=== PATIENT | male | born 1965 | race Caucasian/White ===

== ENCOUNTER 2017-04-17 23:25 | Emergency (ER) | payer OTHER ==
[~2017-04-17] VITALS: Ht 185.4 cm; Wt 85.0 kg
[~2017-04-17 23:25] MED LIST: CEPH500C3 PO; DOXY100T17 OR; ZITH250T PO
[2017-04-17 23:28] VITALS: BP 106/68; PULSE 84; RESP 16; TEMP 97.6; O2SAT 100
[2017-04-18] MEDS ORDERED: SODIUM CHLOR 0.9% 1000 ML INJ 1,000 ML IV ONE (00:30)
[2017-04-18] MEDS ORDERED: THIAMINE INJ 100 MG in SODIUM CHLORIDE 0.9% INJ 100 ML IV ONE (00:30)
[2017-04-18 00:38] LABS: AUTOMATED NEUTROPHIL # 5.2 TH/MM3 (1.8-7.7); BASOPHIL % 0.4 % (0.0-2.0); EOSINOPHIL # 0.2 TH/MM3 (0-0.4); EOSINOPHIL % 2.4 % (0.0-4.0); HEMATOCRIT 43.3 % (39.0-51.0); HEMOGLOBIN 15.1 GM/DL (13.0-17.0); LYMPH % 23.5 % (9.0-44.0); LYMPHOCYTE # 1.8 TH/MM3 (1.0-4.8); MEAN CELL VOLUME 100.1 FL (80.0-100.0); MEAN PLATELET VOLUME 7.9 FL (7.0-11.0); MONO % 6.9 % (0.0-8.0); MONOCYTE # 0.5 TH/MM3 (0-0.9); NEUT % 66.8 % (16.0-70.0); PLATELET COUNT 235 TH/MM3 (150-450); RED BLOOD COUNT 4.32 MIL/MM3 (4.50-5.90); RED CELL DISTRIBUTION WIDTH 13.3 % (11.6-17.2); WHITE BLOOD COUNT 7.8 TH/MM3 (4.0-11.0)
[2017-04-18 00:38] LABS: BILIRUBIN, URINE NEG (NEG); BLOOD, URINE NEG (NEG); GLUCOSE,URINE NEG (NEG); KETONE, URINE NEG (NEG); NITRITE,URINE NEG (NEG); PH, URINE 6.5 (5.0-8.5); URINE COLOR COLORLESS (YELLW/STRAW); URINE LEUKOCYTE ESTERASE NEG (NEG)
--- NOTE | 2017-04-18 00:39 | PD ---
HPI Chief Complaint: Chest Pain Time Seen by Provider: 23:29 Travel History International Travel<30 days: No Contact w/Intl Traveler<30days: No Traveled to known affect area: No History of Present Illness HPI The patient is a 52 year old male who presents to the [facility] emergency department with a history of reportedly beginning to feel lightheaded while he was sitting and watching television, and suddenly passing out and falling forward striking his face. The patient has a small laceration to the mid lower lip. The patient has an abrasion to his nasal bridge. The patient denies having any other pain. The patient was brought in by ambulance services in full C-spine immobilization on a backboard. The patient reports that he has had chest pain intermittently for the last 5 years. He reports that he did undergo workup for this proximate 5 years ago including a stress test and with continued pain a cardiac catheterization that was reportedly negative. He has not had any cardiac testing since then. On review of systems otherwise, the patient denies having any chest pain currently. He denies having any shortness of breath. He denies having any recent fevers, cough, congestion, neck pain, abdominal pain, vomiting, diarrhea, urinary symptoms, or neurologic symptoms. PENDING SALE TO [facility] Past Medical History Narrative Medical The patient's past medical history is significant for alcohol abuse, history of carpal tunnel syndrome bilateral wrists, gout involving bilateral ankles, tobacco abuse, chronic chest pain for the last 5 years, anxiety disorder. Anxiety: Yes Cardiac Catheterization: Yes Diabetes: No Diminished Hearing: No Hiatal Hernia: Yes Musculoskeletal: Yes (KNEE SCOPES) Past Surgical History Narrative Surgical The patient's past surgical history is significant for bilateral knee surgeries , right hand surgery, hernia repair. Abdominal Surgery: Yes (HERNIA) Joint Replacement: Yes (FINGER AND BL KNEES) Oral Surgery: Yes (ROOT CANAL) Other Surgery: Yes (VASECTOMY) Social History Alcohol Use: Yes (4 DAYS A WEEK10 beers each time) Tobacco Use: Yes (8-10 CIGARETTES/DAY) Substance Use: No Allergies-Medications (Allergen,Severity, Reaction): Coded Allergies: No Known Allergies (Verified Adverse Reaction, Unknown, 04/17/17) Reported Meds & Prescriptions Reported Meds & Active Scripts Active Zithromax Z-Tanmay (Azithromycin) 250 Mg Tab 250 Mg PO DIRECTED 5 Days 500 MG (2 TABLETS) PO ON DAY 1, THEN 250 MG (1 TABLET) PO ON DAYS 2 TO 5. Keflex (Cephalexin Monohydrate) 500 Mg Cap 500 Mg PO Q6 Doxycycline Hyclate 100 Mg Tab 100 Mg OR BID 7 Days Review of Systems Except as stated in HPI: all other systems reviewed are Neg General / Constitutional: No: Fever Eyes: No: Visual changes HENT: No: Headaches Cardiovascular: Positive: Chest Pain or Discomfort, Syncope, No: Dyspnea on exertion Respiratory: No: Shortness of Breath Gastrointestinal: No: Nausea, Vomiting, Diarrhea, Abdominal Pain Genitourinary: No: Dysuria Musculoskeletal: No: Pain Skin: No Rash Neurologic: Positive: Syncope, Slurred Speech, No: Weakness, Focal Abnormalities, Coordination Problem, Change in Mentation, Sensory Disturbance Psychiatric: Positive: Substance Abuse, No: Depression Endocrine: No: Polydipsia Hematologic/Lymphatic: No: Easy Bruising Physical Exam Narrative General: The patient is a well-developed well-nourished male in no acute distress. The patient is brought in on a back board in full c-spine immobilization by emergency services. Head and Neck exam: Head is normocephalic, without evidence of trauma to his face. The patient has nasal bone tenderness on palpation without any crepitus or step-off. The patient has a 0.5 cm laceration with bleeding controlled to the lower mid lip. No other facial bone tenderness or increased facial bone mobility noted on palpation. Eyes: EOMI, pupils are equal round and reactive to light. Nose: Midline septum with pink mucous membranes Mouth: Dentition unremarkable. Moist mucus membranes. Posterior oropharynx is not erythematous. No tonsillar hypertrophy. Uvula midline. Airway patent. Neck: The patient is immobilized in a cervical collar. No tracheal deviation. The trachea appears midline. Cardiovascular: Regular rate and rhythm without murmurs, gallops, or rubs. No pulse deficit to the extremities. Lungs: Clear to auscultation bilaterally. No wheezes, rhonchi, or rales. No chest wall tenderness to palpation. No erythema or ecchymosis noted. No crepitus , step off, or flail segment noted. Abdomen: Soft, without tenderness to palpation in all 4 quadrants of the abdomen. No guarding, rebound, or rigidity. No erythema or ecchymosis noted. Extremities: No instability or pain noted on pelvic rock. No clubbing, cyanosis , or edema. 2+ pulses in all 4 extremities. No extremity tenderness or deformity noted on palpation or passive/ active range of motion. Back: The patient was log rolled off of the back board. No spinous process tenderness to palpation. No stepoff or crepitus noted. No costovertebral angle tenderness to palpation. No erythema or ecchymosis. Neurologic Exam: Cranial nerves 2-12 were intact on exam. Strength is 5/5 in all 4 extremities. No sensory deficits noted. The patient has slightly slurred speech. Skin Exam: No rash noted. Intact skin that is warm and dry. Data Data Last Documented VS Vital Signs Date Time Temp Pulse Resp B/P (MAP) Pulse Ox O2 Delivery O2 Flow Rate FiO2 04/18/17 01:00 83 16 121/76 (91) 87 16 126/80 (95) 04/18/17 00:45 100 Room Air 04/17/17 23:28 97.6 Orders Orders Electrocardiogram (04/18/17:16) Complete Blood Count With Diff (04/18/17:16) Comprehensive Metabolic Panel (04/18/17:16) Creatine Kinase (Cpk) (04/18/17:16) Ckmb (Isoenzyme) Profile (04/18/17:16) Troponin I (04/18/17:16) B-Type Natriuretic Peptide (04/18/17:16) Prothrombin Time / Inr (Pt) (04/18/17:16) Act Partial Throm Time (Ptt) (04/18/17:16) Lipase (04/18/17:16) Urinalysis - C+S If Indicated (04/18/17:16) Magnesium (Mg) (04/18/17 00:16) Chest, Single Ap (04/18/17:16) Ct Brain W/O Iv Contrast(Rout) (04/18/17:16) Iv Access Insert/Monitor (04/18/17:16) Ecg Monitoring (04/18/17:16) Oximetry (04/18/17:16) Orthostatic Vital Signs (04/18/17:16) Drug Screen, Random Urine (04/18/17:16) Alcohol (Ethanol) (04/18/17 00:16) Ct Cerv Spine W/O Contrast (04/18/17 ) Ct Facial Bones W/O Iv Cont (04/18/17 ) Sodium Chlor 0.9% 1000 Ml Inj (Ns 1000 M (04/18/17 00:30) Thiamine Inj (Thiamine Inj) (04/18/17 00:30) CKMB (04/18/17 00:28) CKMB% (04/18/17 00:28) Ubla-Mms-Xpwusa (Booster) Inj (Boostrix (04/18/17 01:45) Cefazolin 2 Gm Premix (Ancef 2 Gm Premix (04/18/17 01:45) Admit Order (Ed Use Only) (04/18/17 02:10) Labs Laboratory Tests Test 04/18/17 00:20 04/18/17 00:28 Urine Color COLORLESS Urine Turbidity CLEAR Urine pH 6.5 Urine Specific [place] 1.001 Urine Protein NEG mg/dL Urine Glucose (UA) NEG mg/dL Urine Ketones NEG mg/dL Urine Occult Blood NEG Urine Nitrite NEG Urine Bilirubin NEG Urine Urobilinogen LESS THAN 2.0 MG/DL Urine Leukocyte Esterase NEG Urine RBC LESS THAN 1 /hpf Microscopic Urinalysis Comment CULT NOT INDICATED Urine Opiates Screen NEG Urine Barbiturates Screen NEG Urine Amphetamines Screen NEG Urine Benzodiazepines Screen NEG Urine Cocaine Screen NEG Urine Cannabinoids Screen NEG White Blood Count 7.8 TH/MM3 Red Blood Count 4.32 MIL/MM3 Hemoglobin 15.1 GM/DL Hematocrit 43.3 % Mean Corpuscular Volume 100.1 FL Mean Corpuscular Hemoglobin 35.0 PG Mean Corpuscular Hemoglobin Concent 35.0 % Red Cell Distribution Width 13.3 % Platelet Count 235 TH/MM3 Mean Platelet Volume 7.9 FL Neutrophils (%) (Auto) 66.8 % Lymphocytes (%) (Auto) 23.5 % Monocytes (%) (Auto) 6.9 % Eosinophils (%) (Auto) 2.4 % Basophils (%) (Auto) 0.4 % Neutrophils # (Auto) 5.2 TH/MM3 Lymphocytes # (Auto) 1.8 TH/MM3 Monocytes # (Auto) 0.5 TH/MM3 Eosinophils # (Auto) 0.2 TH/MM3 Basophils # (Auto) 0.0 TH/MM3 CBC Comment DIFF FINAL Differential Comment Prothrombin Time 10.7 SEC Prothromb Time International Ratio 1.1 RATIO Activated Partial Thromboplast Time 27.9 SEC Blood Urea Nitrogen 6 MG/DL Creatinine 0.63 MG/DL Random Glucose 95 MG/DL Total Protein 7.6 GM/DL Albumin 3.6 GM/DL Calcium Level 8.6 MG/DL Magnesium Level 2.5 MG/DL Alkaline Phosphatase 107 U/L Aspartate Amino Transf (AST/SGOT) 44 U/L Alanine Aminotransferase (ALT/SGPT) 50 U/L Total Bilirubin 0.5 MG/DL Sodium Level 142 MEQ/L Potassium Level 3.1 MEQ/L Chloride Level 105 MEQ/L Carbon Dioxide Level 30.6 MEQ/L Anion Gap 6 MEQ/L Estimat Glomerular Filtration Rate 134 ML/MIN Total Creatine Kinase 175 U/L Creatine Kinase MB 2.4 NG/ML Troponin I LESS THAN 0.02 NG/ML B-Type Natriuretic Peptide 13 PG/ML Lipase 208 U/L Ethyl Alcohol Level 266 MG/DL [facility] Medical Decision Making Medical Screen Exam Complete: Yes Emergency Medical Condition: Yes Medical Record Reviewed: Yes Interpretation(s) Last Impressions Head CT 04/18/1715 Signed Impressions: Service Date/Time: Tuesday, April 18, 2017 00:50 - CONCLUSION: Negative noncontrast CT brain. Sg Garcia MD Chest X-Ray 04/18/1715 Signed Impressions: Service Date/Time: Tuesday, April 18, 2017 00:29 - CONCLUSION: The lungs are clear. Sg Garcia MD Maxillofacial CT 04/18/17 0000 Signed Impressions: Service Date/Time: Tuesday, April 18, 2017 00:50 - CONCLUSION: 1. 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 No involvement of the infraorbital canal. 2. No other facial bone fractures seen. Sg Garcia MD Cervical Spine CT 04/18/17 0000 Signed Impressions: Service Date/Time: Tuesday, April 18, 2017 00:50 - CONCLUSION: Negative exam. No evidence of compression deformity or spondylolisthesis. Sg Garcia MD Differential Diagnosis Acute coronary syndrome, versus cardiac arrhythmia, versus orthostasis, versus vasovagal syncope, versus alcohol intoxication Narrative Course During the course of the patients emergency department visit, the patients history, examination, and differential diagnosis were reviewed with the patient. The patient was placed on a library monitor with oximetry and frequent blood pressure monitoring. The patient had IV access obtained and blood work sent for analysis. The patient was initially provided an update to his tetanus, Ancef 2 g IV, thiamine 100 mg IV, normal saline 100 mL per hour. The patient was noted be hypokalemic and was given potassium supplementation orally. The patients laboratory studies were reviewed and remarkable for white count of 7.8, hemoglobin 15.1, platelets 235 with a normal differential, CMP is remarkable for a potassium of 3.1, BUNs 6, AST 44, initial set of cardiac enzymes are within normal limits, BNP is 13, lipase 208, PT 10.7, PTT 27.9. Urinalysis is unremarkable. Urine drug screen is negative, alcohol level CCLXVI. Radiology studies were reviewed and remarkable for a chest x-ray that shows no acute abnormality, head CT shows no acute evidence of intracranial hemorrhage or trauma. CT scan of the C-spine shows degenerative changes, no other acute abnormality. CT scan of the facial bones shows an inferior left-sided anterior orbital discontinuity with herniation of fat. No involvement of the infraorbital canal. No other facial bone fractures seen. The patient's arrived at his bedside. The patient became increasingly agitated and was requesting to leave. I explained to the patient that I plan to admit him for syncope and chest pain. Additionally explained that he had what appeared to be an orbital fracture on the left side and would require evaluation by the maxillofacial surgeon. During that discussion the patient continued to be agitated, belligerent, intermittently cursing. The patient was in the process of being admitted to the hospital when the patient decided that he did not want to stay any longer and preferred to leave AGAINST MEDICAL ADVICE. I had a lengthy discussion with him regarding the fact that he has an orbital fracture on the left side and would require evaluation by a maxillofacial surgeon. In spite of this, the patient refuses admission. The patient additionally reports that he is aware that he could have a cardiac problem causing his syncopal events, however again he does not want to stay to have this evaluated. His is at the bedside and did witness the conversation. The patient was noted to be oriented to person, place, time, situation, and current president. AMA: The risks of leaving against medical advice without further evaluation treatment were discussed with the patient. These risks include cardiac dysfunction, cardiac dysrhythmia, possible heart attack, possible stroke, , loss of vision in the left eye. The patient indicated understanding of these risks and appeared to have the capacity to make this decision. Diagnosis Primary Impression: Syncope Qualified Codes: R55 - Syncope and collapse Additional Impressions: Alcohol abuse Fracture of left orbital floor Qualified Codes: S02.32XA - Fracture of orbital floor, left side, initial encounter for closed fracture Referrals: Eric Tovar DDS 2 days Patient Instructions: Chest Pain (ED), Facial Fracture (ED), General Instructions, Syncope (ED) Disposition: 07 AGAINST MEDICAL ADVICE Condition: Monik Sellers MD Apr 18, 2017 00:39
[2017-04-18 00:44] VITALS: O2SAT 100
--- NOTE | 2017-04-18 00:44 | RADRPT ---
EXAM DATE/TIME: 04/18/2017 00:29 [facility] COMPARISON: No previous studies available for comparison. INDICATIONS : Syncope, short of breath. Fall. MEDICAL HISTORY : None. SURGICAL HISTORY : None. ENCOUNTER: Initial ACUITY: 1 day PAIN SCORE: 0/10 LOCATION: Right chest FINDINGS: A single view of the chest demonstrates the lungs to be symmetrically aerated without evidence of mas s, infiltrate or effusion. No evidence of pneumothorax. The cardiomediastinal contours are unremark able. Osseous structures are intact. CONCLUSION: The lungs are clear. Sg Garcia MD on April 18, 2017 at 0:41 Board Certified Radiologist. This report was verified electronically.
[2017-04-18 00:45] VITALS: BP 120/75; PULSE 81; RESP 14; O2SAT 100
[2017-04-18 00:48] LABS: INTERNATIONAL NORMALIZED RATIO 1.1 RATIO; PROTHROMBIN TIME - PATIENT 10.7 SEC (9.8-11.6)
[2017-04-18 00:51] LABS: ALBUMIN 3.6 GM/DL (3.4-5.0); ALT (GPT) 50 U/L (12-78); AST (GOT) 44 U/L (15-37); BICARBONATE 30.6 MEQ/L (21.0-32.0); BLOOD UREA NITROGEN 6 MG/DL (7-18); CALCIUM 8.6 MG/DL (8.5-10.1); CHLORIDE 105 MEQ/L (98-107); CREATININE 0.63 MG/DL (0.60-1.30); GLOMERULAR FILTRATION RATE 134 ML/MIN (>89); GLUCOSE,RANDOM 95 MG/DL (74-106); LIPASE 208 U/L (73-393); MAGNESIUM 2.5 MG/DL (1.5-2.5); SODIUM (NA) 142 MEQ/L (136-145)
[2017-04-18 00:53] LABS: ALKALINE PHOSPHATASE 107 U/L (45-117); TOTAL BILIRUBIN ADULT 0.5 MG/DL (0.2-1.0); TOTAL PROTEIN 7.6 GM/DL (6.4-8.2); TROPONIN I LESS THAN 0.02 NG/ML (0.02-0.05)
--- NOTE | 2017-04-18 00:58 | RADRPT ---
EXAM DATE/TIME: 04/18/2017 00:50 [facility] COMPARISON: No previous studies available for comparison. INDICATIONS : Trauma; fall. RADIATION DOSE: 50.02 CTDIvol (mGy) MEDICAL HISTORY : None SURGICAL HISTORY : None. ENCOUNTER: Initial ACUITY: 1 day PAIN SCALE: 2/10 LOCATION: cranial TECHNIQUE: Multiple contiguous axial images were obtained of the head. Using automated exposure control and adj ustment of the mA and/or kV according to patient size, radiation dose was kept as low as reasonably a chievable to obtain optimal diagnostic quality images. DICOM format image data is available electro nically for review and comparison. FINDINGS: CEREBRUM: The ventricles are normal for age. No evidence of midline shift, mass lesion, hemorrhage or acute in farction. No extra-axial fluid collections are seen. POSTERIOR FOSSA: The cerebellum and brainstem are intact. The 4th ventricle is midline. The cerebellopontine angle i s unremarkable. EXTRACRANIAL: The visualized portion of the orbits is intact. SKULL: The calvaria is intact. No evidence of skull fracture. CONCLUSION: Negative noncontrast CT brain. Sg Garcia MD on April 18, 2017 at 0:55 Board Certified Radiologist. This report was verified electronically.
[2017-04-18 01:00] VITALS: BP_SYST 121; BP_SYST 126; BP_DIAS 76; BP_DIAS 80; RESP 16
[2017-04-18] MEDS ORDERED: ceFAZolin 2 GM PREMIX 50 ML IV ONE (01:45)
[2017-04-18] MEDS ORDERED: DIPHTH/TETANUS/ACEL PERTUSSIS (BOOSTER) 0.5 ML VIAL/PFS IM ONE (01:45)
--- NOTE | 2017-04-18 01:51 | RADRPT ---
EXAM DATE/TIME: 04/18/2017 00:50 [facility] COMPARISON: No previous studies available for comparison. INDICATIONS : Trauma; fall. RADIATION DOSE: 21.60 CTDIvol (mGy) MEDICAL HISTORY : None SURGICAL HISTORY : None. ENCOUNTER: Initial ACUITY: 1 day PAIN SCORE: 3/10 LOCATION: Bilateral facial TECHNIQUE: Volumetric scanning of the facial bones was performed. Using automated exposure control and adjustme nt of the mA and/or kV according to patient size, radiation dose was kept as low as reasonably achiev able to obtain optimal diagnostic quality images. DICOM format image data is available electronicall y for review and comparison. FINDINGS: On the coronal images, there is a cortical discontinuity of the inferior lateral left orbital wall wi th protrusion of the orbital fat into the superior maxillary sinus. Cortical discontinuity measures 6 mm in width. The intraorbital canal is intact on the left side. The intraocular muscles are symme tric between left and right side. The nasal bone, zygomatic arches, maxilla, and mandible are intact. The frontal, maxillary, ethmoid, and sphenoid sinuses are clear. CONCLUSION: 1. 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 No involvement of the infrao rbital canal. 2. No other facial bone fractures seen. Sg Garcia MD on April 18, 2017 at 1:42 Board Certified Radiologist. This report was verified electronically.
--- NOTE | 2017-04-18 01:54 | RADRPT ---
EXAM DATE/TIME: 04/18/2017 00:50 [facility] COMPARISON: No previous studies available for comparison. INDICATIONS : Trauma; fall. RADIATION DOSE: 50.18 CTDIvol (mGy) MEDICAL HISTORY : None SURGICAL HISTORY : None. ENCOUNTER: Initial ACUITY: 1 day PAIN SCALE: 3/10 LOCATION: Bilateral neck TECHNIQUE: Volumetric scanning of the cervical spine was performed. Multiplanar reconstructions in the sagittal, coronal and oblique axial planes were performed. Using automated exposure control and adjustment o f the mA and/or kV according to patient size, radiation dose was kept as low as reasonably achievable to obtain optimal diagnostic quality images. DICOM format image data is available electronically f or review and comparison. FINDINGS: There is normal alignment of the vertebral bodies of the cervical spine preservation of vertebral bod y height. No greater than anterior paravertebral ossification is present from C3-C7. Mild posterior osteophyte formation at C3-4, C5-6, and C6. The posterior elements are in normal alignment without evidence of locked or perched facets. The atlantoaxial articulation is intact. C2-C3: No fracture seen. The bony neural foramina are patent. C3-C4: No fracture seen. Mild bilateral bony neural foraminal narrowing. C4-C5: No fracture seen. The bony neural foramina are patent. C5-C6: No fracture seen. The bony neural foramina are patent. C6-C7: No fracture seen. Mild left sided bony neural foraminal stenosis. C7-T1: No fracture seen. The bony neural foramina are patent. CONCLUSION: Negative exam. No evidence of compression deformity or spondylolisthesis. Sg Garcia MD on April 18, 2017 at 1:50 Board Certified Radiologist. This report was verified electronically.
[2017-04-18] MEDS ORDERED: POTASSIUM CHLORIDE 20 MEQ CONTROLLED RELEASE TAB PO ONE (02:30)
--- NOTE | 2017-04-18 11:48 | EKG ---
Date Performed: 04/17/2017 Time Performed: 23:41:32 PTAGE: 52 years EKG: Sinus rhythm INCOMPLETE RIGHT BUNDLE BRANCH BLOCK LEFT ANTERIOR FASCICULAR BLOCK ABNORMAL ECG Compared to prior t racing no significant change PREVIOUS TRACING : 05/19/2006 17.08 DOCTOR: Jacky Carrillo Interpretating Date/Time 04/18/2017 11:47:35
== END 2017-04-18 02:44 | disposition left against medical advice (07) ==
LOC: NEPE 23:25 → UNDOADMOB 04-18 02:12 → NEDA 04-18 02:12 → NEPE 04-18 02:44 → UNDODISOB 04-18 02:44
DX: R55 Syncope and collapse (principal); Z53.21 Procedure and treatment not carried out due to patient leaving prior to being seen by health care provider; S02.32XA Fracture of orbital floor, left side, initial encounter for closed fracture; S01.511A Laceration without foreign body of lip, initial encounter; S00.31XA Abrasion of nose, initial encounter; F10.10 Alcohol abuse, uncomplicated; R45.1 Restlessness and agitation; R94.31 Abnormal electrocardiogram [ECG] [EKG]; R06.02 Shortness of breath; E87.6 Hypokalemia; R07.9 Chest pain, unspecified; R42 Dizziness and giddiness; F41.9 Anxiety disorder, unspecified; F17.210 Nicotine dependence, cigarettes, uncomplicated; Z96.653 Presence of artificial knee joint, bilateral; W19.XXXA Unspecified fall, initial encounter
CPT/HCPCS: 70450; 70486; 71010; 72125; 80053; 80307; 81001; 82550; 82552; 83690; 83735; 83880; 84484; 85025; 85610; 85730; 93005; 96365; 96367; 99285; J0690; J3411; J7030